=== PATIENT | female | born 1980 | race Caucasian/White ===

== ENCOUNTER 2016-11-06 10:05 | Observation (INO) | payer OTHER ==
[~2016-11-06] VITALS: Ht 160 cm; Wt 67.5 kg
--- NOTE | ~2016-11-06 | OR ---
Unit #: [id number] #: [id number] Patient: LILIA VIEIRA [id number] [address] [id number] Rhianna MR#: [id number] NAME: LILIA VIEIRA. ROOM: 462 Date of Procedure: 11/06/2016 Admission Date: 11/06/2016 Surgeon: Rolo Arenas M.D. : 1980 Attending Physician: Rolo Arenas M.D. Primary Care Physician: Primary Care Physician No OPERATIVE REPORT PREOPERATIVE DIAGNOSIS Cholecystitis. POSTOPERATIVE DIAGNOSIS Hydrops of the gallbladder. PROCEDURE PERFORMED Laparoscopic cholecystectomy. 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 ANESTHESIA General anesthesia. ESTIMATED BLOOD LOSS 50 mL. IV FLUIDS 1200 crystalloid. COMPLICATIONS None. INDICATIONS FOR PROCEDURE The patient is a 36-year-old with symptoms consistent with cholecystitis. DESCRIPTION OF PROCEDURE The patient was taken to the operating theater and placed in supine position. General anesthesia was induced. The abdomen was prepped and draped. A 5-mm Optiview trocar was placed in the right upper quadrant without difficulty. The abdomen was insufflated to 15 mmHg with CO2. Under direct vision, I placed a subxiphoid 10 mm, right lateral 5 mm, umbilical 5 mm. General inspection of the abdomen revealed a grossly distended gallbladder. It was firm, tense, and acutely inflamed. I decompressed this with needle decompression, removing 60 mL of clear fluid. This was consistent with hydrops of the gallbladder. I retracted the gallbladder up over the liver. I dissected the neck of the gallbladder and identified the cystic duct. Its junction with the gallbladder was confirmed. It was thus skeletonized, doubly hemoclipped, and divided. The cystic artery laid immediately posterior. This was skeletonized, doubly hemoclipped, and divided. The gallbladder was Unit #: [id number] #: [id number] Patient: LILIA VIEIRA removed from the gallbladder bed with Bovie electrocautery and then delivered via the subxiphoid port. Hemostasis was adequate. I irrigated thoroughly with normal saline and aspirate all fluids dry. I removed the ports under direct vision and closed the fascia with 0 Vicryl and skin with 4-0 Vicryl. The patient tolerated the procedure well and sent to recovery room in good condition. Dictated by... Jenny Simon/estefanía TD: 11/06/2016 16:05 JOB #: [id number] OPERATIVE REPORT Page 1 of 1 X Rolo Arenas MD X PROCEDURE OPERATIVE NOTE
[2016-11-06] MEDS ORDERED: CIPRO PO (10:20)
[2016-11-07 02:45] LABS: HEMATOCRIT 36.6 % (35.0-45.0); HEMOGLOBIN 12.6 gm/dL (12.0-16.0); MEAN CELL VOLUME 92.7 FL (83-96); MEAN CORPUSCULAR HEMOGLOBIN 31.8 PG (28-34); MEAN CORPUSCULAR HGB CONC 34.3 g/dL (30-36); MEAN PLATELET VOLUME 9.7 FL (6.5-11.5); RED BLOOD COUNT 3.95 X10e (3.90-5.30); RED CELL DISTRIBUTION WIDTH 12.8 % (11.0-15.5); WHITE BLOOD COUNT 9.3 X10e3 (4.0-10.5)
[2016-11-07 03:19] LABS: ALBUMIN SERUM 3.4 g/dL (3.5-5.0); BILIRUBIN,TOTAL 0.6 mg/dL (0.2-2.0); CALCIUM SERUM 8.8 mg/dL (8.4-10.2); CREATININE SERUM 0.7 mg/dL (0.6-1.4); GLOM FILT RATE Estimated 109.9 mL/min (>60)
[2016-11-07] MEDS ORDERED: PHENERGAN PO (08:00)
[2016-11-07] MEDS ORDERED: HYDROCODON-ACE1 EAC7 PO (08:01)
[2016-11-07] MEDS ORDERED: TYL325 PO (08:02)
== END 2016-11-07 09:01 | disposition home or self-care (01) | DRG 446 ==
LOC: CSUR 10:05 → C4C 10:28 → CPACUOF 10:28 → CSUR 10:28 → CPACUOF 10:28 → CSUR 13:00 → CPACUOF 15:09 → CSUR 15:09 → CPACUOF 18:34 → C4C 18:34
PROVIDERS: Surgery
DX: K80.10 Calculus of gallbladder with chronic cholecystitis without obstruction (principal); E78.89 Other lipoprotein metabolism disorders; Z87.442 Personal history of urinary calculi; Z79.899 Other long term (current) drug therapy
CPT/HCPCS: 80053; 84703; 85027; 88304; 96374; 96376; G0378; J0330; J0690; J1100; J1170; J1644; J1885; J2250; J2405; J3010